=== PATIENT | female | born 2000 | race Caucasian/White ===

== ENCOUNTER 2018-12-08 13:12 | Inpatient (IN) | payer OTHER ==
--- NOTE | 2018-12-08 13:21 | EDPHY ---
H & P Time Seen by Provider: 12/08/18 13:17 Constitutional: Initial Vital Signs Temperature (C) 37 C 12/08/18 13:12 Heart Rate 84 12/08/18 13:12 Respiratory Rate 18 12/08/18 13:12 Blood Pressure 109/60 12/08/18 13:12 O2 Sat (%) 96 12/08/18 13:12 O2 Delivery Mode Room Air Allergies/Adverse Reactions: No Known Allergies Allergy (Verified 12/08/18 16:11) Home Medications: Medication Instructions Recorded Amphet Asp and D/Amphet [Adderall 10 mg PO BID@1300,1600 12/08/18 10 MG (*)] Brexpiprazole [Rexulti] 0.5 mg PO HS 12/08/18 FLUoxetine [Prozac 20 MG (*)] 20 mg PO DAILY 12/08/18 [place] [facility] [Lithobid 300 300 mg PO BID 12/08/18 mg (*)] Medical Decision Making ED Course/Re-evaluation: CHIEF COMPLAINT: Psychiatric evaluation HISTORY OF PRESENT ILLNESS: The patient is a 18 y/o transgender male with a history of depression arriving with police on an M1 hold for a psychiatric evaluation. The patient states that he has been suicidal for "a long time but it has gotten worse in the last several days". He states "I wanted to get hit by a truck on the highway". He reports that he takes several psychiatric medications. No fever, headache, body aches, lightheadedness, chest pain, heart palpitations, shortness of breath, cough, abdominal pain, urinary or bowel complaints, numbness, paresthesias. REVIEW OF SYSTEMS: A comprehensive 10 system review of systems is otherwise negative aside from elements mentioned in the history of present illness and medical decision making. PHYSICAL EXAM: General Appearance: Alert, well hydrated, appropriate, and non-toxic appearing. Head: Atraumatic without scalp tenderness or obvious injury Eyes: Pupils equal, round, reactive to light and accommodation, EOMI, no trauma , no injection. Ears: Clear bilaterally, no perforation, normal landmarks Nose: Atraumatic, no rhinorrhea, clear. Throat: There is no erythema or exudates, no lesions, normal tonsils, mucus membranes moist. Neck: Supple, 2+ carotid upstroke, nontender, no lymphadenopathy. Respiratory: No retractions, no distress, no wheezes, and no accessory muscle use. Lungs are clear to auscultation bilaterally. Cardiovascular: Regular rate and rhythm, no murmurs, rubs, or gallops. Bilateral carotid, radial, dorsalis pedis, and posterior tibial pulses intact. Good capillary refill all extremities. Gastrointestinal: Abdomen is soft, nontender, non-distended, no masses, no rebound, no guarding, no peritoneal signs. Musculoskeletal: Normal active ROM of all extremities, atraumatic. Neurological: Alert, appropriate, and interactive. The patient has normal DTRs and non-focal cranial nerves, motor, sensory, and cerebellar exam. Skin: No rashes, good turgor, no nodules on palpation. Psych: Endorse suicidal ideations. Past medical history: Depression Past surgical history: Denies Family history: Denies Social history: Single, student at , lives in [place] DIFFERENTIAL DIAGNOSIS: The differential diagnosis for the patient's depression included but was not limited to functional and major depression, situational depression, medication side effect, drugs, and alcohol abuse. MEDICAL DECISION MAKING: The patient is a 18 y/o transgender male with a history of depression arriving with police on an M1 hold for a psychiatric evaluation. Patient reports he wants to get hit by a truck. Patient is in no acute distress and is hemodynamically stable. We are awaiting psychiatric team's evaluation. Patient has known history of psychiatric disorders and is here for evaluation. 1530: Patient has been evaluated by [facility]. She has been accepted by Dr. Frank to [address] [place] [address]. EMTALA signed by myself. 1655: Prior to being transferred to , the patient was trying to place a noose around her neck. - Data Points Laboratory Results: Laboratory Results 12/08/18 13:28 12/08/18 13:28 12/08/18 12/08/18 12/08/18 14:25 13:28 13:28 WBC RBC Hgb Hct MCV MCH MCHC RDW Plt Count MPV Neut % (Auto) Lymph % (Auto) [place] % (Auto) Eos % (Auto) Baso % (Auto) Nucleat RBC Rel Count Absolute Neuts (auto) Absolute Lymphs (auto) Absolute Monos (auto) Absolute Eos (auto) Absolute Basos (auto) Absolute Nucleated RBC Immature Gran % Immature Gran # Sodium 140 mEq/L mEq/L (135-145) Potassium 4.0 mEq/L mEq/L (3.5-5.2) Chloride 104 mEq/L mEq/L (97-110) Carbon Dioxide 25 mEq/l mEq/l (22-31) Anion Gap 11 mEq/L mEq/L (6-14) BUN 10 mg/dL mg/dL (7-23) Creatinine 0.6 mg/dL mg/dL (0.6-1.0) Estimated GFR > 60 Glucose 90 mg/dL mg/dL (70-100) Calcium 9.7 mg/dL mg/dL (8.5-10.4) Beta HCG, Qual NEGATIVE Salicylates < 1.0 mg/dL L mg/dL (2.0-20.0) Urine Opiates Screen NEGATIVE (NEGATIVE) Acetaminophen < 10 mcg/mL L mcg/mL (10-30) Urine Barbiturates NEGATIVE (NEGATIVE) Ur Phencyclidine Scrn NEGATIVE (NEGATIVE) Ur Amphetamine Screen NON-NEGATIVE H (NEGATIVE) U Benzodiazepines Scrn NEGATIVE (NEGATIVE) Urine Cocaine Screen NEGATIVE (NEGATIVE) U Marijuana (THC) Screen NEGATIVE (NEGATIVE) Ethyl Alcohol < 10 mg/dL mg/dL (0-10) 12/08/18 13:28 WBC 8.73 10^3/uL 10^3/uL (3.80-9.50) RBC 4.86 10^6/uL 10^6/uL (4.18-5.33) Hgb 14.2 g/dL g/dL (12.6-16.3) Hct 42.5 % % (38.0-47.0) MCV 87.4 fL fL (81.5-99.8) MCH 29.2 pg pg (27.9-34.1) MCHC 33.4 g/dL g/dL (32.4-36.7) RDW 13.4 % % (11.5-15.2) Plt Count 301 10^3/uL 10^3/uL (150-400) MPV 9.2 fL fL (8.7-11.7) Neut % (Auto) 68.3 % % (39.3-74.2) Lymph % (Auto) 22.7 % % (15.0-45.0) [place] % (Auto) 7.7 % % (4.5-13.0) Eos % (Auto) 0.8 % % (0.6-7.6) Baso % (Auto) 0.3 % % (0.3-1.7) Nucleat RBC Rel Count 0.0 % % (0.0-0.2) Absolute Neuts (auto) 5.96 10^3/uL 10^3/uL (1.70-6.50) Absolute Lymphs (auto) 1.98 10^3/uL 10^3/uL (1.00-3.00) Absolute Monos (auto) 0.67 10^3/uL 10^3/uL (0.30-0.80) Absolute Eos (auto) 0.07 10^3/uL 10^3/uL (0.03-0.40) Absolute Basos (auto) 0.03 10^3/uL 10^3/uL (0.02-0.10) Absolute Nucleated RBC 0.00 10^3/uL 10^3/uL (0-0.01) Immature Gran % 0.2 % % (0.0-1.1) Immature Gran # 0.02 10^3/uL 10^3/uL (0.00-0.10) Sodium Potassium Chloride Carbon Dioxide Anion Gap BUN Creatinine Estimated GFR Glucose Calcium Beta HCG, Qual Salicylates Urine Opiates Screen Acetaminophen Urine Barbiturates Ur Phencyclidine Scrn Ur Amphetamine Screen U Benzodiazepines Scrn Urine Cocaine Screen U Marijuana (THC) Screen Ethyl Alcohol Departure - Departure Disposition: [facility] IP Clinical Impression: Suicidal ideation Condition: Fair Referrals: NONE *PRIMARY CARE P,. [Primary Care Provider] - As per Instructions Report Scribed for: Aiden Saldivar Report Scribed by: Collette Caban Date of Report: 12/08/18 Time of Report: 13:25
[2018-12-08 13:35] LABS: PLATELET COUNT 301 10^3/uL (150-400)
--- NOTE | 2018-12-08 16:06 | ASMTLCPROG ---
Notes Note: Notes: Pt was read the patient rights. Pt signed the rights. Original was placed on the chart and pt was given a copy. Date Signed: 12/08/2018 04:06 PM Electronically Signed By:Nroma Lemon
--- NOTE | 2018-12-08 16:08 | ASMTTCLDSP ---
TLC Discharge Disposition Disposition: Answers: Admit Discharge Concerns/Recommendations: Notes: In consultation with [facility] ED physician, Aiden Saldivar MD and on-call psychiatrist, Gavin Frank MD, both concurred that pt appears to meet 27-65 criteria requiring psychiatric hospitalization as pt appears to be at risk of harm to self due to a mental illness condition. Pt was read the Patient Rights and Responsibilities Statement on (12/08/2018), original placed on chart, and was given photocopy of Rights. Pt signed the Patient Rights. Pt was given the 3N prohibited belongings list while in the ED. Was patient given the Answers: Yes Inpatient Behavioral Health Prohibited Belongings List while in the ED? For inpatient Gavin Frank MD admission, the following psychiatrist agreed to accept patient for admission to Behavioral Health ([facility]): Date Signed: 12/08/2018 04:07 PM Electronically Signed By:Norma Lemon
--- NOTE | 2018-12-08 16:18 | ASMTTLCEVL ---
TLC Evaluation - Basic Information Evaluation Start Date and 12/08/2018 02:30 PM Time Hospital Status Answers: M1 Hold 72-hr M1 Hold Start Date 12/08/2018 12:45 PM and Time Patient statement Notes: " Mostly chucky I'm feeling really suicidal." Narrative Notes: Pt is a 18 year old female sent from [facility] to [facility] ED on an M1 that noted, Client presented with flat affect. Report SI with plan, means and intent to act on thoughts. Client stated they plan to overdose on medication. Client was unable to safety plan. Reported previous hospitalization in 2017. Pt reports she has been depressed and having suicidal thoughts for a few years now but its gotten worse in the past couple of days. When asked if there were any stressors in her life that may have contributed to her increased suicidal thoughts, pt stated, The only trigger I can think of is I failed a test I spent a lot of time studying for. Pt reports feeling hopeless and that things will not get better for her. Pt reports, I have a lot of medication still, so my plan is to take all of it. This plan is fairly new. Pt stated, See, I dont know whats medication, whats not seeing a therapist or my relationship with my family thats contributing to this. Diagnosis History Notes: Pt reports a hx of schizoaffective disorder, depressive type and General Anxiety. Prior suicide attempts Notes: Pt reports March 2017, she planned to jump in front of a truck on a freeway late at night. Pt states a construction project coordinator saw her and intervened by asking what she was doing. Pt stated she told him her plan and this man called 911 and she was taken to the hospital. Pt stated she used to cut herself but she has not done that in 1 year. Prior hospitalizations Notes: Pt was hospitalized at [facility] for 6 days. Treatment Responses Notes: Unk History of violence Notes: Pt denied any HI. Therapist: None currently. Pt reports she would like to see a therapist. Psychiatrist: Nasim Burrell at [facility]. Medications (name, dosage, route, freq uency) Notes: Rixalte, Adderall, Prozac and [place]. Pt reports she doesnt remember her doses Allergies/Reaction Notes: Nka Sleep Notes: Wnl Appetite Notes: Pt reports a decrease in appetite. Medical/Surgical history Notes: None reported. Substance use history (frequency, intensity, his tory, duration) Notes: Pt denied any substance or alcohol use. Pts utox was positive for amphetamine. Pt is prescribed Adderall. Utox negative for all other substances and bal was .0. Family composition Notes: Parents, twin brother and 1 younger brother. Pt reports some conflict with her family but pt declined to provide further information. Need for family Answers: No participation in patient's care Family psychiatric/substance abuse history Notes: Pt states she is not aware of any family psychiatric or family substance use hx. Developmental history Notes: Pt reports, I dont remember much of my childhood but my mom apparently told me that I was a problem child. Pt states she does not know if she was diagnosed with ADHD. Pt denied any concussions. When asked about childhood abuse/trauma. Pt stated, I dont know chucky I dont remember it. Marital status/children Notes: Unmarried, no children. Living situation Notes: Pt lives in [place], [place] Sexual history/orientation Notes: Unable to assess. Peer support/family strengths Notes: Pt reports she has a couple of friends. Education level/history Notes: Pt reports she is a sophomore at [employer] studying Computer Science. Work history Notes: Pt reports she is not working. Notes: None Legal Notes: Pt denied any legal problems. Catholic/Spiritual Notes: None that would interfere with tx. Leisure Notes: Pt states she enjoys drawing and playing video games. Collateral Notes: [facility] Patient's strengths Answers: Insightful (Please select at least TWO strengths): Intelligent Motivated for Treatment Willingness TLC Evaluation - Mental Status Exam Appearance: Answers: Appropriate Eye Contact: Answers: Avoiding Mood: Answers: Depressed Sad Affect: Answers: Flat Tearful Behavior: Answers: Cooperative Guarded Speech: Answers: Relevant Logical Clear Coherent Thought Process: Answers: Organized Oriented Alert Intact Insight: Answers: Good Judgement: Answers: Good Depression Answers: Diminished Pleasure Signs/Symptoms: Flat Affect Hopelessness Sad Mood Anxiety Signs/Symptoms Answers: Generalized Anxiety Hallucinations: Answers: None Pt reported to have Answers: No suicidal/self-injuring ideation/behavior? Pt reported to be making Answers: Yes suicidal/self-injuring threats? Pt reported to have Answers: No aggression/assault ideation/behavior? Pt reported to be making Answers: No aggression/assault threats? Pt exhibits inability to Answers: No care for self/grave disability? Ideation/behavior is Answers: Yes chronic? Patient has a specific Answers: Yes plan? Pt has access to means to Answers: Yes execute the plan? Ideation involves Answers: Yes serious/lethal intent? Ideation has Answers: No delusional/hallucinatory content? History of Answers: Yes suicidal/self-injuring ideation, behavior, or threats? History of Answers: No aggressive/assaultive ideation, behavior, or threats? History of serious Answers: No physical harm to self/others while in treatment setting? TLC Evaluation - Suicide/Homicide Risk Suicide Risk Factors: Answers: < 20 or > 40 Years of Age Flat Affect Hopelessness Major Depression Prior Suicide Attempt(s) Homicide/violence risk Answers: None factors: Current Suicidal Answers: Yes Ideation? Current Suicide Ideation Pt reports she has SI daily but her intent will Frequency: fluctuate Current Suicidal Ideation Answers: Yes in the Past 48 Hours? Current Suicidal Ideation Answers: Yes in the Past Month? Current Suicidal Answers: No Ideation, Worst Ever? Suicide Internal Answers: Absence of Psychosis Protective Factors: Suicide External Answers: None Protective Factors: Ranking of patient's Answers: Severe suicidal risk: Ranking of patient's Answers: Low homicidal risk: TLC Evaluation - Wrap-up BDI Total Score: 34 BDI Question #2 Score: 3 BDI Question #9 Score: 2 BSS Total Score: 31 AXIS I Diagnosis (include DSM-V and ICD-10 codes), must also be entered in [employer], which is the source of truth. Notes: Schizoaffective Disorder, Depressive Type 295.70 (F25.1) Generalized Anxiety Disorder 300.02 (F41.1) In consultation with [facility] ED physician, Aiden Saldivar MD and on-call psychiatrist, Gavin Frank MD, both concurred that pt appears to meet 27-65 criteria requiring psychiatric hospitalization as pt appears to be at risk of harm to self due to a mental illness condition. Pt was read the Patient Rights and Responsibilities Statement on (12/08/2018), original placed on chart, and was given photocopy of Rights. Pt signed the Patient Rights. Pt was given the 3N prohibited belongings list while in the ED. Evaluation End Date and 12/08/2018 04:15 PM Time (HH:MAR): Date Signed: 12/08/2018 04:17 PM Electronically Signed By:Norma Lemon
[2018-12-08] MEDS ORDERED: NICOTINE POLACRILEX 2 MG GUM B PRN (18:46)
[2018-12-08] MEDS ORDERED: LORazepam 0.5 MG TAB PO PRN (18:46)
[2018-12-08] MEDS ORDERED: MAG HYDROX/AL HYDROX/SIMETH 30 ML UDCUP PO PRN (18:46)
[2018-12-08] MEDS ORDERED: MAGNESIUM HYDROXIDE 30 ML UDCUP PO PRN (18:46)
[2018-12-08] MEDS ORDERED: OLANZapine DISINTEGR 10 MG TAB PO PRN (18:46)
[2018-12-08] MEDS: LITHIUM CARBONATE ER 300 MG TAB PO SCH (20:24)
[2018-12-08] MEDS: BREXPIPRAZOLE 1 MG TAB PO SCH (20:24)
--- NOTE | 2018-12-09 08:51 | ASMTBHMTP ---
Master Treatment Plan Master Treatment Plan Answers: Depressed Mood with for: Suicidal Ideation Date: 12/08/2018 Diagnosis on Admission: Schizoaffective Disorder, Depressive Type 295.70 (F25.1) Expected length of stay: 3-5 days Reason for admission: Notes: Per Report: Pt is a 18 year old female sent from [facility] to [facility] ED on an M1 that noted, Client presented with flat affect. Report SI with plan, means and intent to act on thoughts. Client stated they plan to overdose on medication. Client was unable to safety plan. Reported previous hospitalization in 2017. Pt reports she has been depressed and having suicidal thoughts for a few years now but its gotten worse in the past couple of days. When asked if there were any stressors in her life that may have contributed to her increased suicidal thoughts, pt stated, The only trigger I can think of is I failed a test I spent a lot of time studying for. Pt reports feeling hopeless and that things will not get better for her. Pt reports, I have a lot of medication still, so my plan is to take all of it. This plan is fairly new. Pt stated, See, I dont know whats medication, whats not seeing a therapist or my relationship with my family thats contributing to this. Patient's stated presenting problems: Notes: feeling suicidal Patient's goals for treatment: Notes: get out of here Patient's strengths: Notes: not really Identify supports outside of hospital: Notes: Friends mostly Discharge criteria: Notes: Suicidal Ideation will resolve and patient will have a plan to safely manage recurrent suicidal ideation. Initial disposition plan/considerations: Notes: live with my parents in [place] Master Treatment Plan Required Signatures Psychiatrist signature: Answers: Psychiatrist: RN on-shift signature: Answers: RN: Patient signature: Answers: Patient: Date Signed: 12/09/2018 08:50 AM Electronically Signed By:Ramon Garcia
[2018-12-09] MEDS: LITHIUM CARBONATE ER 300 MG TAB PO SCH ×2 (09:33→21:06)
[2018-12-09] MEDS: FLUoxetine 20 MG CAP PO SCH (09:33)
--- NOTE | 2018-12-09 10:13 | PDMN ---
Medical Necessity Medical necessity: Pt meets inpt criteria per MD order and [facility], Schizophrenia Spectrum Disorders, Adult: Inpatient Care, 6 days. 18 y/o on M1 Hold due to suicidal ideation admitted w/schizoaffective disorder, depressive type and gen anxiety disorder, requires inpt psychiatric hospitalization as pt is risk of harm to self due to mental illness condition.
[2018-12-09] MEDS: ACETAMINOPHEN 325 MG TAB PO PRN (10:56)
--- NOTE | 2018-12-09 12:16 | BAPA ---
[f rep st] ADMISSION PSYCHIATRIC ASSESSMENT DATE OF SERVICE: 12/09/2018 CHIEF COMPLAINT: "I was feeling really suicidal." HISTORY OF PRESENT ILLNESS: From the ED note, dated 12/08/2018, patient presented to the emergency department with police on an M1 hold. The patient reported feeling suicidal for a long time and worsening suicidality over the past several days. The patient reported plan to be hit by truck on the highway. From the [facility] evaluation, dated 12/08/2018, the patient was placed on a 72-hour M1 hold with start date and time of 12/08/2018, at 12:45 p.m. The patient reported to the [facility] home extension agent "mostly 'cause I'm feeling really suicidal." The patient was sent from [facility] at [facility] to [facility] ED on an M1 hold. The patient was placed on M1 hold due to being danger to self with plan, means and intent to act on suicidal thoughts. The patient reported to [facility] a plan to overdose on medication. The patient was unable to contract for safety. The patient reported recent stressor as failing a test that patient had studied a lot for. The patient reported feeling hopeless, reported things were not getting better. Patient denies current suicidal ideation. The patient reports current depression symptoms as depressed mood nearly every day all day, poor appetite, fatigue, low energy, feelings of hopelessness, and recent suicidal ideation with plan. The patient denies history of abuse. The patient denies other psychiatric symptoms, including symptoms of ra, ADHD, OCD, PTSD, psychosis, and any other symptom of a psychiatric disorder. PAST PSYCHIATRIC HISTORY: Patient reports history of suicide attempt as March 2017. The patient planned to jump in front of a truck on the freeway at night. The patient stated a construction job cost estimator saw her and intervened by asking what patient was doing. The patient reported the man then called 911 and patient was taken to hospital. The patient has history of being hospitalized at [facility] in March 2017 for 6 days. The patient reports not currently seeing a therapist. The patient reports currently having a relationship with psychiatrist, Nasim Burrell, at [facility]. ALLERGIES: No known allergies. CURRENT MEDICATIONS: 1. Tylenol 650 mg p.o. q.4 hours p.r.n. 2. Rexulti 0.5 mg p.o. q.h.s. 3. Prozac 20 mg p.o. daily. 4. Geronimo carbonate ER 300 mg p.o. b.i.d. 5. Ativan 0.5 to 1 mg p.o. q.6 hours p.r.n. 6. Maalox syrup 30 mL p.o. q.6 hours p.r.n. 7. Milk of magnesia 30 mL p.o. daily p.r.n. PAST MEDICAL HISTORY: The patient reports no history of major illnesses or major hospitalizations. SOCIAL HISTORY: The patient is not and has no children. The patient currently lives in [place], [place]. The patient is currently a sophomore at [employer], studying computer science. The patient reports not currently working. The patient denies any current legal problems. Reports no samaritan or spiritual practice that would interfere with treatment. SUBSTANCE USE HISTORY: The patient reports no use of substances or alcohol. FAMILY PSYCHIATRIC HISTORY: Patient reports unaware of any family psychiatric or family substance use history. ADMISSION LABS AND STUDIES: 1. CBC within normal limits. 2. BMP within normal limits. 3. Liver function within normal limits. 4. Lipid panel within normal limits. 5. Beta HCG qualitative test was negative. 6. Toxicology screen non-negative for amphetamine. Negative for all other substances screened, and negative for ethyl alcohol. MENTAL STATUS EXAM: The patient is well nourished, looking stated chronological age. Attire is appropriate. Dress is casual. Grooming status is appropriate. Ambulation is independent. Gait is normal and coordinated. Posture is normal and relaxed. Eye contact is appropriate and adequate. Motor activity is appropriate with purposeful, organized, coordinated movements with no involuntary movements noted. Attitude is cooperative and friendly. The patient appears attentive and relates well to this interviewer. Language production is spontaneous. Rate, rhythm and volume are normal. Articulation is clear. The patient reports mood as "depressed" with constricted, flat and congruent affect. The patient's thought process is linear and logical with no loose associations, tangential thought, thought blocking, concrete thinking, or any other signs of formal thought disorder. The patient does not report suicidal or homicidal thoughts, ideas or plans. The patient denies auditory or visual hallucinations. Patient denies delusions. Patient does not appear to be attending to internal stimuli. The patient is oriented to person, place, time and situation. The patient's attention and concentration are fair. The patient's insight and judgment are poor. There is no evidence of gross cognitive dysfunction at any point during the interview and no evidence of apparent dysfunction in recent or remote memory noted. DIAGNOSES: Based on the patient's history and current presentation, the patient 's diagnosis is major depressive disorder, severe. FORMULATION: The patient is 18 years of age, single, unemployed, currently a student at [employer], living in [place], [place], who presents to the hospital involuntarily due to risk to harm self and is currently on an M1 hold. The patient requires continued inpatient care because of recent suicidal ideation with plan. Patient presents with problems of increased stressors, increased depression and suicidal ideation that have been increasing over the past several days. Patient's life has been affected by these problems, including increased suicidal ideation to point of having plan with intent. The exacerbation of symptoms, preceded by patient failing exam the patient studied a lot for. The patient has a past psychiatric history of major depression that is currently treated with psychotropic medications, and response to treatment has been poor. The patient is a high suicide safety risk due to recent suicidal ideation with plan. Protective factors while hospitalized include ongoing safety checks, active involvement in treatment and support from our treatment team. The patient could benefit from inpatient hospitalization for safety, crisis stabilization, and medication evaluation. PLAN: 1. Psychotropic medications. After reviewing options, risks and benefits with the patient, patient agrees to continue current medications listed above. No other medication changes at this time as more time is needed to determine ongoing tolerability and efficacy. Plan is to continue to observe patient for response and side effects from medications, and ongoing monitoring and evaluation. 2. Review with patient informed consent and recommendations for psychotropic medication treatment listed below 3. Labs: no additional labs at this time 4. Therapy: continue milieu and group therapy 5. Further investigation including gathering information from patients relatives and review of past case records to inform treatment plan. 6. Safety/Wellness plan and follow-up outpatient appointments to be established prior to discharge. Next steps are for patient to meet with wild animal caretaker to plan a safe discharge plan and establish outpatient services for ongoing treatment. 7. Confer with inpatient treatment team regarding treatment plan. 8. Address psychosocial stressors by meeting with respiratory care instructor to establish discharge plan including referrals for outpatient services. 9. Legal status: M1 10. Consider discharge on if patient is in stable condition, safe, and has a safe discharge plan. ESTIMATED LENGTH OF STAY: 1-3 days PSYCHOTROPIC MEDICATION TREATMENT INFORMED CONSENT and RECOMMENDATIONS: Review nature of condition, diagnosis, and prognosis. Review nature and purpose of psychotropic medication treatment. Review type of psychotropic medications being ordered. Review risk and benefits of psychotropic medication treatment. Review probable length of time will need to take medications. Review risk and benefits of not undergoing psychotropic medication treatment. Review alternative treatments to psychotropic medications. Review psychotropic medications contraindications, drug-drug interactions, side effects, and importance of reporting any side effects to a psychiatric provider or nurse during inpatient hospitalization, and upon discharge to patients psychiatric outpatient provider, primary care provider, or other health child care center assistant director. Review importance of asking a nurse, psychiatric provider, or primary care provider any questions or problems concerning the psychotropic medications. Verify patient understands the information that has been provided, and understands, accepts, and agrees to psychotropic medications. Review patients safety plan and importance of patient to communicate to staff while hospitalized if patient is ever a danger to self/others, or unable to care for self, and upon discharge, the importance for patient to contact [facility] or [facility], or go to the nearest emergency room, if patient is ever a danger to self/others, or unable to care for self. Recommend that upon discharge patient establish medication management treatment with a psychiatric provider, establishes routine therapy appointments, and follow-up with primary care provider. Verify patient understands and agrees to these recommendations. /[id number]/MODL MTDD
--- NOTE | 2018-12-09 14:38 | BCON ---
[f rep st] BEHAVIORAL HEALTH CONSULTATION INTERNAL MEDICINE CONSULTATION DATE OF CONSULTATION: 12/09/2018 REFERRING PHYSICIAN: Dr. Frank REASON FOR REFERRAL: Medical clearance for inpatient behavioral health stay. HISTORY OF PRESENT ILLNESS: This patient is a transgender female to male. He came to the [facility] Emergency Department sent by the counseling service at the [facility] [employer] [facility] with suicidality and a plan variously reported in the chart as to jump in front of a truck or to overdose on medications. He was evaluated by the mental health team and admitted for further psychiatric care. He currently is without any acute complaints. PAST MEDICAL HISTORY: He denies any history of any medical illnesses and surgeries. He has mental health diagnoses in the chart including depression and schizoaffective disorder. MEDICATIONS: Prior to admission: 1. [place] 300 mg p.o. twice daily. 2. Fluoxetine 20 mg p.o. daily. 3. Brexpiprazole 0.5 mg p.o. at bedtime. 4. Adderall 10 mg p.o. twice daily at 1300 and 1600. ALLERGIES: There are no known drug allergies. SOCIAL HISTORY: He does not smoke or use alcohol. 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 He lives at home with his parents and siblings. FAMILY HISTORY: Noncontributory. REVIEW OF SYSTEMS: He denies fevers, chills, pain, cough, dyspnea, nausea, vomiting, constipation, diarrhea, palpitations, chest pain, dysuria, urinary frequency, and otherwise, a 10-point review of systems is negative. He does report that he picks at his right thumb and he has some bleeding there at present. PHYSICAL EXAM: VITAL SIGNS: Blood pressure is 118/77, heart rate is 82, respiratory rate is 16, oxygen saturation 98% on room air, temperature is 37.2 degrees centigrade. His weight is 50.8 kg for a body mass index of 18.6. GENERAL: This is a thin person, phenotypically female, dressed in street clothes, sitting in a chair, cooperative, and in no acute distress. HEENT: Extraocular movements are intact. Pupils are equal, round, and reactive to light. Mucous membranes are moist. Dentition is in good condition. He has an uncrowded airway, Mallampati class 1. NECK: Supple. HEART: Regular rate and rhythm with no murmurs, rubs, or gallops. LUNGS: Clear to auscultation bilaterally. ABDOMEN: Benign. EXTREMITIES: There is no cyanosis, clubbing, or edema. NEUROLOGIC: He is alert and oriented x3. Cranial nerves 2 through 12 are grossly intact. There is no focal weakness. Sensation is intact to light touch and gait is normal. SKIN: There is a small laceration in the medial distal aspect of the left thumb adjacent to the nail with scant bleeding. There is no erythema and no purulence. LABORATORY STUDIES: From yesterday, CBC was normal. Serum chemistry revealed normal renal function and electrolytes, normal liver functions, and a benign lipid panel. Beta hCG was negative for . Toxicology screen in the serum was negative for salicylates, acetaminophen, or ethyl alcohol and the urine was non-negative for amphetamines but otherwise negative for substances of abuse. ASSESSMENT AND RECOMMENDATIONS: 1. Mental health issues, pending further evaluation. 2. Laceration to the right thumb, likely self inflicted. It is covered with Band-Aids and this is appropriate wound care. Expect spontaneous resolution. I see no medical contraindications to this patient's continued stay on the inpatient behavioral health unit or to any psychiatric medications or procedures. Thank you very much for including me in the care of this patient, and please do not hesitate to contact me or the hospitalist service should there be need for further medical evaluation. /[id number]/MODL MTDD
[2018-12-09] MEDS: BREXPIPRAZOLE 1 MG TAB PO SCH (21:06)
[2018-12-10] MEDS: ACETAMINOPHEN 325 MG TAB PO PRN (08:08)
[2018-12-10] MEDS: FLUoxetine 20 MG CAP PO SCH (08:08)
[2018-12-10] MEDS: LITHIUM CARBONATE ER 300 MG TAB PO SCH ×2 (08:08→20:28)
--- NOTE | 2018-12-10 08:45 | SOAPPROG ---
SOAP Progress Note Assessment/Plan: Assessment: Major Depressive Disorder, Severe. Improvement noted. (see subjective/ objective note). Patient could benefit from continued inpatient hospitalization for crisis stabilization, safety, and medication evaluation. Consider discharge tomorrow. Plan: 1. Psychotropic medications: After reviewing options, risks, and benefits patient agrees to continue current medications. No medication changes at this time as more time is needed to determine ongoing tolerability and efficacy. Plan is to continue to observe patient for response and side effects from medications, and ongoing monitoring and evaluation. 2. Review with patient informed consent and recommendations for psychotropic medication treatment listed below 3. Labs: no additional labs at this time 4. Therapy: continue milieu and group therapy 5. Further investigation including gathering information from patients relatives and review of past case records to inform treatment plan. 6. Safety/Wellness plan and follow-up outpatient appointments to be established prior to discharge. Next steps are for patient to meet with residential caregiver to plan a safe discharge plan and establish outpatient services for ongoing treatment. 7. Confer with inpatient treatment team regarding treatment plan. 8. Psychosocial stressors addressed through case management social worker. 9. Legal status: M1 10. Consider discharge on if patient is in stable condition, safe, and has a safe discharge plan. PSYCHOTROPIC MEDICATION TREATMENT INFORMED CONSENT and RECOMMENDATIONS: Review nature of condition, diagnosis, and prognosis. Review nature and purpose of psychotropic medication treatment. Review type of psychotropic medications being ordered. Review risk and benefits of psychotropic medication treatment. Review probable length of time patient will need to take medications. Review risk and benefits of not undergoing psychotropic medication treatment. Review alternative treatments to psychotropic medications. Review psychotropic medications contraindications, drug-drug interactions, side effects, and importance of reporting any side effects to a psychiatric provider or nurse during inpatient hospitalization, and upon discharge to patients psychiatric outpatient provider, primary care provider, or other health foster care therapist. Review importance of asking a nurse, psychiatric provider, or primary care provider any questions or problems concerning the psychotropic medications. Verify patient understands the information that has been provided, and understands, accepts, and agrees to psychotropic medications. Review patients safety plan and importance of patient to report to staff while hospitalized if patient is ever a danger to self/others, or unable to care for self, and upon discharge, the importance for patient to contact [facility] or [facility], or go to the nearest emergency room, if patient is ever a danger to self/others, or unable to care for self. Recommend that upon discharge patient establish medication management treatment with a psychiatric provider, establishes routine therapy appointments, and follow-up with primary care provider. Verify patient understands and agrees to these recommendations. 12/10/18 08:44 Subjective: Following up with patient for evaluation of depression and safety. Patient reports, "Feel tired." Patient expresses no psychiatric symptoms. Patient reports, "Just tired." Patient denies SI and denies self-injurious ideation, and reports feeling safe. Patient reports no side effects from current medications, and agrees to continue current medications. Patient reports not interested in medication changes at this time, and reports plans to follow-up with outpatient provider after discharge for ongoing medication management. Patient reports plans to return to parents home in [place], [place] after discharge. Objective: Vital Signs Temp Pulse Resp BP Pulse Ox 37.2 C 103 H 16 92/58 L 97 12/10/18 06:00 12/10/18 06:00 12/10/18 06:00 12/10/18 06:00 12/10/18 06:00 NURSING REPORT: Consulted with nursing for update on patients progress in treatment. Nurses report patient is engaged in treatment, is attending some groups, slept 8 hours, expresses the following psychiatric symptoms: none, exhibits the following psychiatric symptoms: anxiety; is eating all meals. Patient is agreeable to medications with no report of side effects. Patient denies SI/HI. Patient reports no self-injurious ideation and reports feeling safe. MSE: The patient presents casually dressed and with good hygiene, and looks stated age. Patient is sitting, posture is upright, and position is relaxed. Patient appears awake, alert, and responds appropriately and reasonably during interview. Patient is engaged, relates well to interviewer, and emotional facial expression is appropriate to situation and changes appropriately with topic. Patient is cooperative, makes comfortable eye contact, and movements are voluntary, deliberate, coordinated, and smooth and even with no inappropriate movements. Patient makes laryngeal sounds effortlessly and shares conversation appropriately; pace of conversation is appropriate, and stream of talking is fluent; articulation is clear and understandable; word choice is effortless and appropriate for education level; completes sentences, occasionally pausing to think; rate and volume are appropriate for interview and setting. Patient reports mood as euthymic. Patients affect is stable with full variable range, congruent with mood, and appropriate to speech and circumstances. Patient has linear and logical thinking, with no loose associations, tangential thought, thought blocking, concrete thinking, or any other signs of formal thought disorder. Patient denies suicidal and homicidal ideation, and denies hallucinations and delusions. Patient appears to be a reliable historian with sound judgement and good insight into current condition. Patient has no apparent dysfunction in recent or remote memory noted , and no evidence of gross cognitive dysfunction noted at any point during the interview. - Time Spent With Patient Time Spent With Patient: 15 minutes, met with patient individually. - Pending Discharge Pending Discharge Within 24 Hours: No Pending Discharge Within 48 Hours: No ICD10 Worksheet Patient Problems: Problems Problem Status Onset Major depressive disorder, severe Acute
[2018-12-10] MEDS: BREXPIPRAZOLE 1 MG TAB PO SCH (20:28)
[2018-12-11 07:03] VITALS: BP 97/55
[2018-12-11] MEDS: FLUoxetine 20 MG CAP PO SCH (09:24)
[2018-12-11] MEDS: LITHIUM CARBONATE ER 300 MG TAB PO SCH (09:24)
--- NOTE | 2018-12-11 11:08 | ASMTBHDC ---
Notes Note: Notes: CC was able to confirm all necessary discharge follow up apts: Follow up with: [facility] location [address] Next Apt: December 16 (12/16/18) at 9am with Kranthi Biggs LCSW. Nasim Britton TIAN [address] [facility] [id number] [address] Next Apt: December 23 (12/23/18) at 9:20am. Date Signed: 12/11/2018 11:08 AM Electronically Signed By:Ramon Garcia
--- NOTE | 2018-12-11 12:21 | BDS ---
[f rep st] BEHAVIORAL HEALTH DISCHARGE SUMMARY REASON FOR ADMISSION: From the ED note dated 12/08/2018, patient with history of depression, arrived with police on an M1 hold. Patient reported increased depression and suicidal ideation with plans. Patient was admitted involuntarily and on an M1 hold due to being a danger to self. Patient was admitted for safety, crisis stabilization, and medication management. ADMITTING DIAGNOSIS: Major depressive disorder, severe. ADMISSION PHYSICAL EXAM: Patient was seen on 12/09/2018, for history and physical consultation for medical clearance for inpatient psychiatric hospitalization and treatment. Patient was medically cleared for inpatient psychiatric hospitalization and treatment. For further details, please refer to consultation document dated 12/09/2018. ADMISSION LABS: 1. CBC within normal limits. 2. BMP within normal limits. 3. Hemoglobin A1c within normal limits at 4.9. 4. Liver function within normal limits. 5. Lipid panel within normal limits. 6. Beta hCG qualitative test negative. 7. Toxicology screen non-negative for amphetamine, negative for other substances screened, and negative for ethyl alcohol. 8. Steen level at current lithium dose on 12/10/2018, was 0.5. MAJOR PROCEDURES OR TESTS: None. HOSPITAL COURSE: The most prominent symptoms and behaviors while the patient was here were reports of severe depression. Treatment modalities utilized were milieu and group therapy. Rexulti 0.5 mg p.o. q.h.s. was continued to target mood symptoms, was tolerated with no report of side effects and with good response. Steen carbonate ER 300 mg p.o. twice daily with continued to target mood symptoms, was tolerated with no report of side effects and with good response. Prozac 20 mg p.o. daily was continued to target mood symptoms, was tolerated with no report of side effects and with good response. Patient has improved considerably with no signs of psychiatric symptoms and no psychiatric symptoms expressed. Patient reports improved since admission, states to be in stable condition, feels safe to discharge, and contracts for safety. Patients response to treatment was good. There were no adverse or unexpected results of treatment. The patient was safe throughout stay, active in treatment, engaged in groups, and was appropriate with staff. Patient met with treatment team prior to discharge to assess readiness to discharge and review discharge plan. The treatment team consensus is the patient in stable condition, has a safe discharge plan, and is ready to discharge today. CONDITION AT DISCHARGE: Patient is in stable condition and is no longer a danger to self or others, and is not gravely disabled due to mental illness. Patient is no longer in need of inpatient level of care, and can be safely and effectively treated within the community. The patients level of risk at time of discharge is low. MSE: The patient is casually dressed and with good hygiene , and looks stated age. Patient is sitting, posture is upright, and position is relaxed. Patient appears awake, alert, and responds appropriately and reasonably during interview. Patient is engaged, relates well to interviewer, and emotional facial expression is appropriate to situation and changes appropriately with topic. Patient is cooperative, makes comfortable eye contact , and movements are voluntary, deliberate, coordinated, and smooth and even with no inappropriate movements. Patient makes laryngeal sounds effortlessly and shares conversation appropriately; pace of conversation is appropriate, and stream of talking is fluent; articulation is clear and understandable; word choice is effortless and appropriate for education level; completes sentences, occasionally pausing to think; rate and volume are appropriate for interview and setting. Patient reports mood as euthymic. Patients affect is stable with full variable range, congruent with mood, and appropriate to speech and circumstances. Patient has linear and logical thinking, with no loose associations, tangential thought, thought blocking, concrete thinking, or any other signs of formal thought disorder. Patient denies suicidal and homicidal ideation, and denies hallucinations and delusions. Patient appears to be a reliable historian with sound judgement and good insight into current condition. Patient has no apparent dysfunction in recent or remote memory noted , and no evidence of gross cognitive dysfunction noted at any point during the interview. DISCHARGE DIAGNOSIS: Major depressive disorder, severe. CURRENT MEDICATIONS: After reviewing options risks and benefits with the patient, the patient agrees to continue: 1. Rexulti 0.5 mg p.o. q.h.s. 2. Steen carbonate ER 300 mg p.o. b.i.d. 3. Prozac 20 mg p.o. daily. During discharge interview, the patient reports has prescriptions of these medications and reports has prescriptions at home and does not need prescriptions at time of discharge. Patient reports plans to follow-up with outpatient provider for ongoing medication evaluation. Medications are reviewed with patient at time of discharge to ensure accuracy and patient understanding. DISPOSITION: Patient left hospital independently and voluntarily with plans to return to parent's home and return to courses at . FOLLOWUP: merchandising coordinator reports the appropriate outpatient follow-up services have been established and outpatient appointments have been scheduled. The patient received written instructions with times and dates of outpatient follow-up appointments. The following follow-up recommendations were provided to the patient at discharge: Continue psychotropic medications as prescribed and attend appointments as scheduled. Report any side effects to a psychiatric outpatient provider, a primary care provider, or other health live in caregiver. Address any questions or problems concerning the psychotropic medications with a psychiatric outpatient provider, a primary care provider, or other health live in caregiver. Contact [facility] or [facility], or go to the nearest emergency room, if you are ever a danger to yourself/others, or unable to care for yourself. As soon as possible, establish a routine medication management treatment with a psychiatric provider, establish routine therapy appointments, and follow-up with a primary care provider. LEGAL COURSE: Patient was admitted on an M1 hold for involuntary inpatient psychiatric hospitalization. Patient discharged today independently and voluntarily. ATTITUDE AT TIME OF DISCHARGE: The patients attitude was positive at time of discharge, and patient reports looking forward to discharging today. The patient reports feels safe to discharge, is no longer a danger to self or others , is in stable condition, and contracts for safety. Patient states will continue medications as prescribed, and establish medication management treatment with an outpatient provider after discharge. Patient reports understands the information that has been provided, and understands, accepts, and agrees to psychotropic medications. Patient describes internal protective factors as the coping skills learned while hospitalized here, and plans to continue to practice these coping skills after discharge. LABS AND RADIOLOGY STUDIES: There were no pending labs or studies at time of discharge. ADVANCE DIRECTIVES: There were no advance directives on file, and patient was full code during this hospitalization. The following psychotropic medication treatment informed consent and recommendations were provided to the patient at time of discharge. Patient reports understands, accepts, and agrees to the information that has been provided. PSYCHOTROPIC MEDICATION TREATMENT INFORMED CONSENT and RECOMMENDATIONS: Review nature of condition, diagnosis, and prognosis. Review nature and purpose of psychotropic medication treatment. Review type of psychotropic medications being prescribed. Review risk and benefits of psychotropic medication treatment. Review probable length of time will need to take medications. Review risk and benefits of not undergoing psychotropic medication treatment. Review alternative treatments to psychotropic medications. Review psychotropic medications contraindications, side effects, and importance of reporting any side effects to a psychiatric provider, primary care provider, or other health live in caregiver. Review importance of asking a psychiatric provider or primary care provider any questions or problems concerning the psychotropic medications. Review importance of reporting to a psychiatric provider, primary care provider, or other health live in caregiver if plans to or becomes . Review safety plan and the importance to contact [facility] or [facility] , or go to the nearest emergency room, if ever a danger to yourself/others, or unable to care for yourself. Recommend upon discharge to establish routine medication management treatment with a psychiatric provider, establish routine therapy appointments, and follow-up with a primary care provider. Verify patient understands, accepts, and agrees to the information that has been provided. /[id number]/MODL MTDD
== END 2018-12-11 12:11 | disposition home or self-care (01) | DRG 885 ==
LOC: EEVIPCON 13:12 → BBEH 17:35
PROVIDERS: ADMIT Psychiatry & Neurology Psychiatry; ATTEND Psychiatry & Neurology Psychiatry
DX: F33.3 Major depressive disorder, recurrent, severe with psychotic symptoms (principal); F28 Other psychotic disorder not due to a substance or known physiological condition
CPT/HCPCS: 80305; G0480